=== PATIENT | male | born 1995 | race Caucasian/White ===

== ENCOUNTER 2019-08-23 13:47 | Emergency (ER) | payer SELFPAY ==
[~2019-08-23] VITALS: Ht 177.8 cm; Wt 69.0 kg
[2019-08-23] MEDS ORDERED: SODIUM CHLORIDE 0.9% 1,000 ML IV ONE (14:59)
[2019-08-23 15:31] LABS: BASOPHILS % 0.5 % (0.0-2.0); EOSINOPHILS % 2.8 % (0.0-5.0); HEMATOCRIT. 37.6 % (42.0-52.0); HEMOGLOBIN. 12.3 g/dL (14.0-18.0); MEAN CORPUSCULAR HEMOGLOBIN 24.2 pg (28.0-32.0); MEAN CORPUSCULAR VOLUME 73.8 fL (80.0-94.0); MEAN PLATELET VOLUME 7.6 fl (7.4-10.4); MONOCYTES % 6.2 % (2.0-8.0); NEUTROPHILS % 65.5 % (40.0-76.0); PLATELET 257 x1000/uL (130-400); RED BLOOD CELL COUNT 5.09 mill/uL (4.7-6.1); RED CELL DISTRIBUTION WIDTH 17.6 % (11.6-14.6)
[2019-08-23 15:33] LABS: CHLORIDE 112 mEq/L (98-107)
[2019-08-23 15:38] LABS: ETHANOL BLOOD 231 mg/dL
[2019-08-23] MEDS ORDERED: LORAZEPAM 2MG/ML CPJ IM ONE (16:00)
[2019-08-23] MEDS ORDERED: HALOPERIDOL LACTATE 5MG/ML VIAL IM ONE (16:00)
[2019-08-23 16:03] LABS: CLARITY URINE CLEAR (CLEAR); COLOR URINE YELLOW (YELLOW); KETONES URINE NEGATIVE (NEGATIVE); LEUKOCYTE ESTERASE URINE NEGATIVE (NEGATIVE); NITRITE URINE NEGATIVE (NEGATIVE); OCCULT BLOOD URINE NEGATIVE (NEGATIVE); PH URINE 6.5 (4.5-8.0); PROTEIN URINE NEGATIVE (NEGATIVE); SPECIFIC GRAVITY URINE 1.007 (1.005-1.030); UROBILINOGEN URINE 0.2 E.U./dL (0.2-1.0)
[2019-08-23 16:58] LABS: *BARBITURATES SCREEN URINE NEGATIVE (NEGATIVE); PHENCYCLIDINE URINE SCREEN PRESUMTIVE POSITIVE (NEGATIVE)
[2019-08-23 16:59] LABS: *AMPHETAMINES SCREEN URINE NEGATIVE (NEGATIVE); *BENZODIAZEPINES SCREEN URINE NEGATIVE (NEGATIVE); *COCAINE SCREEN URINE NEGATIVE (NEGATIVE); CANNABINOID URINE SCREEN PRESUMTIVE POSITIVE (NEGATIVE); METHADONE URINE SCREEN NEGATIVE (NEGATIVE); OPIATES URINE SCREEN NEGATIVE (NEGATIVE)
[2019-08-24 03:30] VITALS: BP 105/70
== END 2019-08-24 04:30 | disposition home or self-care (01) ==
LOC: ER 13:47
DX: F10.129 Alcohol abuse with intoxication, unspecified (principal); F16.10 Hallucinogen abuse, uncomplicated; F12.10 Cannabis abuse, uncomplicated; R45.1 Restlessness and agitation; Y90.7 Blood alcohol level of 200-239 mg/100 ml; R03.0 Elevated blood-pressure reading, without diagnosis of hypertension; Z78.1 Physical restraint status
CPT/HCPCS: 36415; 80053; 80305; 80320; 81003; 82962; 85025; 96372; 99285; J1630; J2060; J7030; G0480